=== PATIENT | male | born 1960 | race American Indian/Alaskan Native ===

== ENCOUNTER 2018-01-05 21:52 | Emergency (ER) | payer OTHER ==
[~2018-01-05] VITALS: Ht 170.2 cm; Wt 90.7 kg
--- NOTE | 2018-01-05 21:54 | ED AMS/SEIZURE/WEAK/DIZZY ---
History of Present Illness General Chief Complaint: Neuro Symptoms/ Deficit Stated Complaint: ?SEIZURE Source: family, old records, EMS Exam Limitations: clinical condition Vital Signs & Intake/Output Vital Signs & Intake/Output Vital Signs Date Time Temp Pulse Resp B/P B/P Pulse O2 O2 Flow FiO2 Mean Ox Delivery Rate 01/05 2328 97.3 72 18 106/65 97 Room Air 01/05 2217 95 Room Air 01/05 2152 88 18 132/68 96 Room Air ED Intake and Output 01/06 0000 01/05 1200 Intake Total Output Total Balance Patient 200 lb Weight Weight Reported by Patient Measurement Method Allergies Coded Allergies: No Known Allergies (01/05/18) Triage Nurses Notes Reviewed? yes HPI: EMS received a call for the patient who fell in a parking lot. Upon their arrival patient was sitting in a chair with PD on scene. Patient states that he had tripped and fallen. Patient has no complaints. EMS was bringing him into the hospital when the patient began to have seizure-like activity. The seizure- like activity was hypertonicity was snoring respirations. Patient states that he has been having similar symptoms over the past few months and he is seeing a therapist for it. His therapist is trying to set him up with a neurologist. Patient is not on any antiseizure medications. His witnessed this event and states that this is the same thing that he has been having at home. Past History Travel History Traveled to [place] past 21 day No Medical History Any Pertinent Medical History? see below for history Psychiatric: anxiety Surgical History Surgical History: non-contributory Psychosocial History Tobacco Use: Quit >30 days ago ETOH Use: occasional use Illicit Drug Use: denies illicit drug use Family History Hx Contributory? No Review of Systems Review of Systems Constitutional: Reports: see HPI. Physical Exam Physical Exam General Appearance: well developed/nourished, awake, moderate distress Head: atraumatic Eyes: Bilateral: PERRL, EOMI. Ears, Nose, Throat: normal pharynx, normal ENT inspection Neck: normal inspection, supple, full range of motion Respiratory: normal breath sounds, no respiratory distress, lungs clear Cardiovascular: regular rate/rhythm, normal peripheral pulses Gastrointestinal: normal bowel sounds, soft, no organomegaly Back: normal inspection Extremities: normal range of motion, pelvis stable Neurologic/Psych: sNORING RESPIRATIONS, POSITIVE GAG REFLEX, HYPERTONICITY, NO RESPONSE TO PAINFUL STIMULI Skin: intact, normal color, warm/dry Comments: Patient's states that these are the exact episodes that he has been having over the past few months. Patient has been seeing his psychologist and is awaiting evaluation by neurology. Core Measures ACS in differential dx? No CVA/TIA Diagnosis No Sepsis Present: No Sepsis Focused Exam Completed? No Progress Differential Diagnosis: alcohol intoxication, CVA/stroke, drug intoxication, electrolyte imbalance, seizure disorder, subarachnoid Hem. Plan of Care: Orders Procedure Date/time Status TROPONIN LEVEL 01/05 2155 Complete PROLACTIN 01/05 2155 Complete ETHANOL 01/05 2155 Complete COMPREHENSIVE METABOLIC PANEL 01/05 2155 Complete CBC WITHOUT DIFFERENTIAL 01/05 2155 Complete EKG 01/05 2155 Active Laboratory Tests 01/05/182212: Anion Gap 16, Estimated GFR > 60, BUN/Creatinine Ratio 8.3, Glucose 113 H, Calcium 8.9, Total Bilirubin 0.4, AST 42, ALT 35, Alkaline Phosphatase 100, Troponin I < 0.01, Total Protein 7.2, Albumin 4.2, Globulin 3.0, Albumin/ Globulin Ratio 1.4, Prolactin 23.2 H, CBC w Diff NO MAN DIFF REQ, RBC 4.73, MCV 93.1, MCH 31.6 H, MCHC 34.0, RDW 14.3, MPV 7.8, Gran % 48.3, Lymphocytes % 38.3 , Monocytes % 6.7, Eosinophils % 6.4 H, Basophils % 0.3, Absolute Granulocytes 3.3, Absolute Lymphocytes 2.6, Absolute Monocytes 0.5, Absolute Eosinophils 0.4, Absolute Basophils 0, Serum Alcohol 377.0 01/05/182154: Methadone Screen Cancelled, Barbiturate Screen Cancelled, Ur Phencyclidine Scrn Cancelled, Amphetamines Screen Cancelled, U Benzodiazepines Scrn Cancelled, Urine Cocaine Screen Cancelled, Urine Cannabis Screen Cancelled, Urine Color Cancelled, Urine Clarity Cancelled, Urine pH Cancelled, Ur Specific [place] Cancelled, Urine Protein Cancelled, Urine Ketones Cancelled, Urine Nitrite Cancelled, Urine Bilirubin Cancelled, Urine Urobilinogen Cancelled, Ur Leukocyte Esterase Cancelled, Ur Microscopic Cancelled, Urine Hemoglobin Cancelled, Urine Glucose Cancelled Diagnostic Imaging: Viewed by Me: CT Scan. Discussed w/RAD: CT Scan. Radiology Impression: PATIENT: CHRIS SAVAGE PRESENT AGE: 57 PATIENT ACCOUNT NO: [id number] : 62 LOCATION: [facility] ORDERING PHYSICIAN: Bradley Malagon MD SERVICE DATE: 01/05/18 EXAM TYPE: CAT - CT HEAD WO IV CONTRAST EXAMINATION: CT HEAD WITHOUT CONTRAST CLINICAL INFORMATION: Seizure. Question acute intracranial hemorrhage. COMPARISON: No relevant prior imaging. TECHNIQUE: Contiguous axial imaging was performed from the skull base to vertex without intravenous administration of contrast. DLP: 641.98 mGy-cm FINDINGS: There is no acute intracranial hemorrhage or abnormal extra-axial collection. No intracranial mass effect or midline shift. Lateral and third ventricles are normal. No hydrocephalus. Sparks-white matter differentiation is grossly preserved and there is no evidence of acute territorial infarct. The calvarium and skull base are intact. The left mastoid air cells and middle ear cavity are nearly completely opacified and there is a trace right mastoid tip effusion. Mild to moderate paranasal sinus disease primarily affecting the maxillary sinuses and ethmoid air cells. IMPRESSION: No evidence of acute territorial infarct or hemorrhage. Acute maxillary sinusitis. DICTATED BY: Kg Hurst MD DATE/TIME DICTATED:01/05/182241 X RAY TECHNOLOGIST:LATHA DATE/TIME TRANSCRIBED:01/05/182241 CONFIDENTIAL, DO NOT COPY WITHOUT APPROPRIATE AUTHORIZATION. <Electronically signed in Other Vendor System> SIGNED BY: Kg Hurst MD 01/05/182246 Initial ED EKG: NSR, no ST T wave changes Departure Departure Disposition: HOME OR SELF CARE Condition: Stable Clinical Impression Primary Impression: Alcohol intoxication Secondary Impressions: Head injury, Seizure Additional Instructions: FOLLOW UP WITH [facility] YOU REALLY NEED TO STOP DRINKING. PLEASE RETURN TO THE ER IF YOU WOULD LIKE HELP TO STOP DRINKING OR FOR ANY OTHER CONCERNS Departure Forms: Customer Survey General Discharge Information
[2018-01-05 22:24] LABS: ABSOLUTE BASOPHIL COUNT 0 /CUMM (0.0-0.2); ABSOLUTE EOSINOPHIL COUNT 0.4 /CUMM (0.0-0.7); ABSOLUTE GRANULOCYTE CT 3.3 /CUMM (1.4-6.5); ABSOLUTE LYMPH COUNT 2.6 /CUMM (1.2-3.4); ABSOLUTE MONOCYTE COUNT 0.5 /CUMM (0.10-0.60); BASOPHIL % 0.3 % (0.0-2.0); EOSINOPHIL % 6.4 % (0-5); GRANULOCYTE % 48.3 % (42.2-75.2); MEAN CORPUSCULAR HGB 31.6 PG (27.0-31.0); MEAN CORPUSCULAR VOLUME 93.1 FL (80.0-94.0); MEAN PLATELET VOLUME 7.8 FL (7.4-10.4); PLATELET COUNT 219 /CUMM (130-400); RBC DISTRIBUTION WIDTH 14.3 % (11.5-14.5); RED BLOOD CELL CT 4.73 /CUMM (4.70-6.10); WHITE BLOOD CELL COUNT 6.8 /CUMM (4.8-10.8)
--- NOTE | 2018-01-05 22:47 | CT SCAN REPORT ---
EXAMINATION: CT HEAD WITHOUT CONTRAST CLINICAL INFORMATION: Seizure. Question acute intracranial hemorrhage. COMPARISON: No relevant prior imaging. TECHNIQUE: Contiguous axial imaging was performed from the skull base to vertex without intravenous administration of contrast. DLP: 641.98 mGy-cm FINDINGS: There is no acute intracranial hemorrhage or abnormal extra-axial collection. No intracranial mass effect or midline shift. Lateral and third ventricles are normal. No hydrocephalus. Sparks-white matter differentiation is grossly preserved and there is no evidence of acute territorial infarct. The calvarium and skull base are intact. The left mastoid air cells and middle ear cavity are nearly completely opacified and there is a trace right mastoid tip effusion. Mild to moderate paranasal sinus disease primarily affecting the maxillary sinuses and ethmoid air cells. IMPRESSION: No evidence of acute territorial infarct or hemorrhage. Acute maxillary sinusitis.
[2018-01-05 23:28] VITALS: BP 106/65
== END 2018-01-06 00:09 ==
LOC: ERH 21:52
PROVIDERS: Emergency Medicine
DX: R56.9 Unspecified convulsions (principal); S09.90XA Unspecified injury of head, initial encounter; F10.129 Alcohol abuse with intoxication, unspecified; W19.XXXA Unspecified fall, initial encounter; Y92.481 Parking lot as the place of occurrence of the external cause; Y93.9 Activity, unspecified
CPT/HCPCS: 80307; 93005; 93010; 96372; G0480

== ENCOUNTER 2018-01-20 18:11 | Emergency (ER) | payer OTHER ==
[~2018-01-20] VITALS: Ht 175.3 cm; Wt 99.8 kg
--- NOTE | 2018-01-20 18:19 | ED SYNCOPE COMPLAINT ---
History of Present Illness General Chief Complaint: Fall Stated Complaint: BIBA FALL Source: patient, old records, EMS Exam Limitations: intoxication Vital Signs & Intake/Output Vital Signs & Intake/Output Vital Signs Date Time Temp Pulse Resp B/P B/P Pulse O2 O2 Flow FiO2 Mean Ox Delivery Rate 01/20 2130 98.2 83 18 113/70 01/20 2130 98.4 83 18 113/70 97 Room Air 01/20 1830 98.6 69 18 155/88 95 Room Air 01/20 1823 98.4 92 18 146/80 07 1813 98.4 92 18 146/80 93 Room Air ED Intake and Output 01/21 0000 01/20 1200 Intake Total Output Total 450 Balance -450 Output, Urine 450 Patient 220 lb Weight Weight Estimated Measurement Method Allergies Coded Allergies: No Known Allergies (01/05/18) Triage Nurses Notes Reviewed? yes HPI: Patient brought in by EMS for evaluation after a syncopal episode while intoxicated. Patient was seen leaving a bar and walked over convenience store. While standing in line he was witnessed to pass out and fall backwards hitting his head on the ground. Patient's only complaint upon EMS arrival was left ankle pain. Patient states that his ankle routinely gives out on him. Patient denies any chest pain or palpitations. Patient denies any headache or blurry vision. Patient wanted EMS did just drive him home and then go to his 's friend's house to pick her up and bring her home as well. (Vesna ROY,Bradley Pat) Past History Medical History Any Pertinent Medical History? see below for history Neurological: NONE EENT: NONE Cardiovascular: NONE Respiratory: NONE Gastrointestinal: NONE Hepatic: NONE Renal: NONE Musculoskeletal: NONE Psychiatric: anxiety Endocrine: NONE Blood Disorders: NONE Cancer(s): NONE SANDWICH WRAPPER/Reproductive: NONE Surgical History Surgical History: non-contributory Psychosocial History What is your primary language Ethiopian Tobacco Use: Quit >30 days ago ETOH Use: heavy use Illicit Drug Use: denies illicit drug use Family History Hx Contributory? No (Vesna ROY,Bradley Pat) Review of Systems Review of Systems Constitutional: Reports: no symptoms. EENTM: Reports: no symptoms. Respiratory: Reports: no symptoms. Cardiovascular: Reports: no symptoms. GI: Reports: no symptoms. Genitourinary: Reports: no symptoms. Musculoskeletal: Reports: see HPI, joint pain, joint swelling. Skin: Reports: no symptoms. Neurological/Psychological: Reports: no symptoms. All Other Systems: Reviewed and Negative (Vensa ROY,Bradley Pat) Physical Exam Physical Exam General Appearance: well developed/nourished, alert, awake, intoxicated Head: atraumatic Eyes: Bilateral: PERRL, EOMI, other (SLUGGISH). Ears, Nose, Throat: normal pharynx, normal ENT inspection, hearing grossly normal Neck: normal inspection, supple, no midline tenderness Respiratory: normal breath sounds, chest non-tender, no respiratory distress, lungs clear Cardiovascular: regular rate/rhythm, normal peripheral pulses Gastrointestinal: normal bowel sounds, soft, non-tender, no organomegaly Back: normal inspection, vertebral tenderness Extremities: DEFORMITY AND TENDERNESS TO LEFT ANKLE Psychiatric: awake, alert, oriented x 3 Cranial Nerves: normal hearing, PERRL, SLURRED SPEECH Core Measures ACS in differential dx? No CVA/TIA Diagnosis: No Sepsis Present: No Sepsis Focused Exam Completed? No (Vesna ROY,Bradley Pat) Progress Differential Diagnosis: AMI, drug induced syncope, orthostatic syncope, seizure, vasodepressor syncope Plan of Care: Orders Procedure Date/time Status URINE DRUGS OF ABUSE 01/20 194 Complete CIWA 01/20 1818 Active Telemetry/Hot Room Attendant 01/21 1816 Active TROPONIN LEVEL 01/20 181 Complete ETHANOL 01/20 181 Complete COMPREHENSIVE METABOLIC PANEL 01/21 1816 Complete CBC WITHOUT DIFFERENTIAL 01/21 1816 Complete EKG 01/20 1813 Active Laboratory Tests 01/20/18 2200: Troponin I Cancelled 01/20/18 194: Urine Opiates Screen > 4000.00 H, Methadone Screen 566 H, Barbiturate Screen < 60, Ur Phencyclidine Scrn < 6.00, Amphetamines Screen 508, U Benzodiazepines Scrn > 800 H, Urine Cocaine Screen < 50, Urine Cannabis Screen < 5.00 01/20/18 1909: Anion Gap 16, Estimated GFR > 60, BUN/Creatinine Ratio 8.3, Glucose 98, Calcium 8.4, Total Bilirubin 0.6, AST 50, ALT 35, Alkaline Phosphatase 155 H, Troponin I < 0.01, Total Protein 6.8, Albumin 4.0, Globulin 2.8, Albumin/Globulin Ratio 1.4, CBC w Diff NO MAN DIFF REQ, RBC 4.65 L, MCV 94.1 H, MCH 32.3 H, MCHC 34.4, RDW 14.9 H, MPV 7.2 L, Gran % 52.7, Lymphocytes % 36.1, Monocytes % 6.1, Eosinophils % 4.6, Basophils % 0.5, Absolute Granulocytes 4.2, Absolute Lymphocytes 2.9, Absolute Monocytes 0.5, Absolute Eosinophils 0.4, Absolute Basophils 0, Serum Alcohol 354.0 Diagnostic Imaging: Viewed by Me: Radiology Read, CT Scan. Discussed w/RAD: Radiology Read, CT Scan. Hand-Off Endorsed To: Adolfo ROY,Marcel Morataya Endorsed Time: 1899 Pending: CT, labs, Xray (Vesna ROY,Bradley Pat) Radiology Impression: PATIENT: CHRIS SAVAGE PRESENT AGE: 57 PATIENT ACCOUNT NO: [id number] : 62 LOCATION: [facility] ORDERING PHYSICIAN: Bradley Malagon MD SERVICE DATE: 01/20/18 EXAM TYPE: CAT - CT CERV SPINE WO IV CONTRAST; CT HEAD WO IV CONTRAST EXAMINATION: CT HEAD WITHOUT CONTRAST CT CERVICAL SPINE WITHOUT CONTRAST CLINICAL INFORMATION: Syncope, fall, EtOH. Head injury. COMPARISON: Head CT of 01/05/2018. TECHNIQUE: Multidetector volumetric CT imaging of the head and cervical spine is acquired without intravenous contrast administration. Postprocessing is performed at a dedicated workstation. Multiplanar reformatted images are submitted. DLP: 1088.81 mGy-cm FINDINGS: CT HEAD: The ventricles and sulci are normal. There is no evidence of acute intracranial hemorrhage, midline shift or mass effect. Sparks to white matter differentiation is well preserved. No evidence of acute territory infarction. No abnormal extra-axial fluid collection. The osseous calvarium is intact. No evidence of calvarial soft tissue hematoma or swelling. There is near-complete opacification of the visualized right maxillary sinus. Moderate opacification of the ethmoid air cells. Left mastoid and middle ear effusion is redemonstrated. CT CERVICAL SPINE: There is no evidence of acute fracture or subluxation. The vertebral body heights and alignment are maintained. The posterior elements are intact and in normal alignment. Atlantoaxial and atlantooccipital alignments are normal. Moderate to severe narrowing of the multiple intervertebral disc spaces is noted from C2 to C7. There are prominent marginal osteophytes from C2 to C6. There is severe narrowing of the left C2-C3, C3-C4 neural foramina. Moderate to severe narrowing of the left C4-C5 and C5-C6 neural foramina. Mild narrowing of the right C3-C4, moderate to severe narrowing of the right C4-C5 and C5-C6 neural foramina. Mild narrowing of the bilateral neural foramina at C6-C7. A large osteophyte projects into the central spinal canal at C2-C3 level resulting in moderate to severe narrowing of the central spinal canal at this level. There are disc osteophytic changes at multiple other levels resulting in mild to moderate central canal stenosis. No evidence of prevertebral soft tissue swelling. The thyroid gland and lung apices are unremarkable. IMPRESSION: 1. No acute intracranial abnormality. 2. No evidence of acute fracture or subluxation in the cervical spine. Moderate to severe cervical spondylosis as detailed above. 3. Stable paranasal sinus disease as well as left mastoid and left middle ear effusion. DICTATED BY: Carla Celeste MD DATE/TIME DICTATED:01/20/181903 STEAM PRESS TENDER: LATHA DATE/TIME TRANSCRIBED:01/20/181903 CONFIDENTIAL, DO NOT COPY WITHOUT APPROPRIATE AUTHORIZATION. <Electronically signed in Other Vendor System> SIGNED BY: Carla Celeste MD 01/20/181936, PATIENT: CHRIS SAVAGE PRESENT AGE: 57 PATIENT ACCOUNT NO: [id number] : LOCATION: [facility] ORDERING PHYSICIAN: Bradley Malagon MD SERVICE DATE: 01/20/18 EXAM TYPE: RAD - XRY-ANKLE 3 OR MORE VIEWS L EXAMINATION: XR ANKLE , LEFT CLINICAL INFORMATION: Fall, deformity. COMPARISON: None. TECHNIQUE: AP, lateral, and mortise views of the left ankle. FINDINGS: Old fracture deformity of the distal tibial metadiaphysis. There is heterotopic osseous partial bridging between the distal tibia and fibula. Mild talocrural joint arthritis. There is mild spurring from the medial malleolus. No acute fracture is identified. Ankle mortise is congruent. No significant soft tissue swelling is seen. Moderate Achilles tendon insertional spurring. Vascular calcification present. IMPRESSION: Old distal tibial fracture deformity. Mild talocrural joint arthritis. No radiographic evidence of discrete acute fracture. DICTATED BY: Jonas Moody MD DATE/TIME DICTATED:01/20/182024 STEAM PRESS TENDER:LATHA DATE/TIME TRANSCRIBED:01/20/182024 CONFIDENTIAL, DO NOT COPY WITHOUT APPROPRIATE AUTHORIZATION. <Electronically signed in Other Vendor System> SIGNED BY: Jonas Moody MD 01/20/182048 (Marcel Mata MD) Departure Departure Disposition: STILL A PATIENT Condition: Stable Clinical Impression Primary Impression: Syncope Secondary Impressions: Alcohol intoxication, Ankle injury, Cervical strain, Head injury Referrals: Unknown (PCP/Family) Departure Forms: Customer Survey General Discharge Information (Vesna ROY,Bradley Pat) Departure Comments 01/20/18, 21:30..... pt wishes to leave against medical advice.... I shared with him that he should stay for further monitoring, repeat ekg/troponin. He declines, stating, "I didn't have a heart attack... I just want to go home and go to sleep." He is able to ambulate, denies any pain or dizziness. He is otherwise well, articulates understanding of wanting to go home. He will follow up with his physician. He has signed the AMA paperwork, witnessed by his who has also signed. PA/MARKETING CONTENT SPECIALIST Co-Sign Statement Statement: ED Attending supervision documentation- [] I saw and evaluated the patient. I have also reviewed all the pertinent lab results and diagnostic results. I agree with the findings and the plan of care as documented in the PA's/MARKETING CONTENT SPECIALIST's documentation. [x] I have reviewed the ED Record and agree with the PA's/MARKETING CONTENT SPECIALIST's documentation. [] Additions or exceptions (if any) to the PAs/MARKETING CONTENT SPECIALIST's note and plan are summarized below: [] (Adolfo ROY,Marcel Morataya)
[2018-01-20 19:14] LABS: ABSOLUTE BASOPHIL COUNT 0 /CUMM (0.0-0.2); ABSOLUTE EOSINOPHIL COUNT 0.4 /CUMM (0.0-0.7); ABSOLUTE GRANULOCYTE CT 4.2 /CUMM (1.4-6.5); ABSOLUTE LYMPH COUNT 2.9 /CUMM (1.2-3.4); ABSOLUTE MONOCYTE COUNT 0.5 /CUMM (0.10-0.60); BASOPHIL % 0.5 % (0.0-2.0); EOSINOPHIL % 4.6 % (0-5); GRANULOCYTE % 52.7 % (42.2-75.2); HEMATOCRIT 43.7 % (42-52); MEAN CORPUSCULAR HGB 32.3 PG (27.0-31.0); MEAN CORPUSCULAR HGB CONC 34.4 G/DL (33.0-37.0); MEAN CORPUSCULAR VOLUME 94.1 FL (80.0-94.0); MEAN PLATELET VOLUME 7.2 FL (7.4-10.4); PLATELET COUNT 219 /CUMM (130-400); RBC DISTRIBUTION WIDTH 14.9 % (11.5-14.5); RED BLOOD CELL CT 4.65 /CUMM (4.70-6.10); WHITE BLOOD CELL COUNT 7.9 /CUMM (4.8-10.8)
--- NOTE | 2018-01-20 19:37 | CT SCAN REPORT ---
EXAMINATION: CT HEAD WITHOUT CONTRAST CT CERVICAL SPINE WITHOUT CONTRAST CLINICAL INFORMATION: Syncope, fall, EtOH. Head injury. COMPARISON: Head CT of 01/05/2018. TECHNIQUE: Multidetector volumetric CT imaging of the head and cervical spine is acquired without intravenous contrast administration. Postprocessing is performed at a dedicated workstation. Multiplanar reformatted images are submitted. DLP: 1088.81 mGy-cm FINDINGS: CT HEAD: The ventricles and sulci are normal. There is no evidence of acute intracranial hemorrhage, midline shift or mass effect. Sparks to white matter differentiation is well preserved. No evidence of acute territory infarction. No abnormal extra-axial fluid collection. The osseous calvarium is intact. No evidence of calvarial soft tissue hematoma or swelling. There is near-complete opacification of the visualized right maxillary sinus. Moderate opacification of the ethmoid air cells. Left mastoid and middle ear effusion is redemonstrated. CT CERVICAL SPINE: There is no evidence of acute fracture or subluxation. The vertebral body heights and alignment are maintained. The posterior elements are intact and in normal alignment. Atlantoaxial and atlantooccipital alignments are normal. Moderate to severe narrowing of the multiple intervertebral disc spaces is noted from C2 to C7. There are prominent marginal osteophytes from C2 to C6. There is severe narrowing of the left C2-C3, C3-C4 neural foramina. Moderate to severe narrowing of the left C4-C5 and C5-C6 neural foramina. Mild narrowing of the right C3-C4, moderate to severe narrowing of the right C4-C5 and C5-C6 neural foramina. Mild narrowing of the bilateral neural foramina at C6-C7. A large osteophyte projects into the central spinal canal at C2-C3 level resulting in moderate to severe narrowing of the central spinal canal at this level. There are disc osteophytic changes at multiple other levels resulting in mild to moderate central canal stenosis. No evidence of prevertebral soft tissue swelling. The thyroid gland and lung apices are unremarkable. IMPRESSION: 1. No acute intracranial abnormality. 2. No evidence of acute fracture or subluxation in the cervical spine. Moderate to severe cervical spondylosis as detailed above. 3. Stable paranasal sinus disease as well as left mastoid and left middle ear effusion.
--- NOTE | 2018-01-20 20:49 | RADIOLOGY REPORT ---
EXAMINATION: XR ANKLE, LEFT CLINICAL INFORMATION: Fall, deformity. COMPARISON: None. TECHNIQUE: AP, lateral, and mortise views of the left ankle. FINDINGS: Old fracture deformity of the distal tibial metadiaphysis. There is heterotopic osseous partial bridging between the distal tibia and fibula. Mild talocrural joint arthritis. There is mild spurring from the medial malleolus. No acute fracture is identified. Ankle mortise is congruent. No significant soft tissue swelling is seen. Moderate Achilles tendon insertional spurring. Vascular calcification present. IMPRESSION: Old distal tibial fracture deformity. Mild talocrural joint arthritis. No radiographic evidence of discrete acute fracture.
[2018-01-20 21:30] VITALS: BP 113/70
== END 2018-01-20 21:45 | disposition left against medical advice (07) ==
LOC: ERH 18:11
PROVIDERS: Emergency Medicine
DX: R55 Syncope and collapse (principal); S16.1XXA Strain of muscle, fascia and tendon at neck level, initial encounter; S09.90XA Unspecified injury of head, initial encounter; S99.912A Unspecified injury of left ankle, initial encounter; F10.129 Alcohol abuse with intoxication, unspecified; W19.XXXA Unspecified fall, initial encounter; Y92.512 Supermarket, store or market as the place of occurrence of the external cause
CPT/HCPCS: 73610-LT; 80307; 93005; 93010; G0480